=== PATIENT | female | born 1995 | race American Indian/Alaskan Native ===

== ENCOUNTER 2017-11-22 13:52 | Emergency (ER) | payer OTHER ==
[2017-11-22 14:12] VITALS: BP 121/84
[2017-11-22] MEDS ORDERED: ULTRAM PO ONE (15:23)
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
== END 2017-11-22 15:56 | disposition home or self-care (01) ==
LOC: ED 13:52
DX: S00.83XA Contusion of other part of head, initial encounter (principal); V47.5XXA Car driver injured in collision with fixed or stationary object in traffic accident, initial encounter; G43.909 Migraine, unspecified, not intractable, without status migrainosus; Y93.89 Activity, other specified; Y92.89 Other specified places as the place of occurrence of the external cause; Y99.8 Other external cause status
CPT/HCPCS: 99282